=== PATIENT | female | born 1990 | race American Indian/Alaskan Native ===

== ENCOUNTER 2016-05-07 18:54 | Emergency (ER) | payer SELFPAY ==
[2016-05-07] MEDS ORDERED: MOTRIN PO ONE (22:01)
[2016-05-07] MEDS ORDERED: TRIMOX PO ONE (22:01)
--- NOTE | 2016-05-07 22:01 | Emergency Department Report ---
ED ENT HPI - General Chief complaint: Dental/Oral Stated complaint: TOOTH ACHE/EAR INFECTION Time Seen by Provider: 05/07/16 21:47 Source: patient Mode of arrival: Ambulatory Limitations: No Limitations - History of Present Illness Initial comments: PT c/o hole in R upper molar with intermittent pain. PT states the pain is worse if it is cold or if wind gets in her mouth. PT states her pain worsened last night. PT states she thinks her ear is infected. PT states she has intermittent ear pain. PT states she did not take anything for the pain because she did not know what was wrong. MD complaint: tooth pain, ear pain -: Gradual Location: R ear, tooth # (1) 1 - pain Severity: severe Severity scale (0 -10): 10 Quality: aching Consistency: constant Improves with: none Worsens with: other (cold air, wind ) Associated Symptoms: toothache. denies: gum swelling, discharge from ear - Related Data Home Medications Medication Instructions Recorded Confirmed Last Taken Pnv with Ca,No.72/Iron/FA 1 tab PO DAILY 10/03/14 10/28/15 08/10/15 09:00 [ Plus Tablet] 1 Ferrous Sulfate [Feosol] 325 mg PO QDAY 08/10/15 10/28/15 08/10/15 09:00 1 Previous Rx's Medication Instructions Recorded Last Taken Type Amoxicillin 500 mg PO BID #20 capsule 05/07/16 Unknown Rx Ibuprofen [Motrin] 600 mg PO Q8H PRN #15 tablet 05/07/16 Unknown Rx traMADol [Ultram] 50 mg PO Q6HR PRN #12 tablet 05/07/16 Unknown Rx Allergies Allergy/AdvReac Type Severity Reaction Status Date / Time No Known Allergies Allergy Verified 08/10/15 11:38 ED Dental HPI - General Chief complaint: Dental/Oral Stated complaint: TOOTH ACHE/EAR INFECTION Time Seen by Provider: 05/07/16 21:47 Source: patient Mode of arrival: Ambulatory Limitations: No Limitations - Related Data Home Medications Medication Instructions Recorded Confirmed Last Taken Pnv with Ca,No.72/Iron/FA 1 tab PO DAILY 10/03/14 10/28/15 08/10/15 09:00 [ Plus Tablet] 1 Ferrous Sulfate [Feosol] 325 mg PO QDAY 08/10/15 10/28/15 08/10/15 09:00 1 Previous Rx's Medication Instructions Recorded Last Taken Type Amoxicillin 500 mg PO BID #20 capsule 05/07/16 Unknown Rx Ibuprofen [Motrin] 600 mg PO Q8H PRN #15 tablet 05/07/16 Unknown Rx traMADol [Ultram] 50 mg PO Q6HR PRN #12 tablet 05/07/16 Unknown Rx Allergies Allergy/AdvReac Type Severity Reaction Status Date / Time No Known Allergies Allergy Verified 08/10/15 11:38 ED Review of Systems ROS: Stated complaint: TOOTH ACHE/EAR INFECTION Other details as noted in HPI Comment: All other systems reviewed and negative Constitutional: denies: fever ENT: as per HPI Genitourinary: other ( control implant ). denies: abnormal menses ED Past Medical Hx - Past Medical History Hx Hypertension: No Hx Heart Attack/AMI: No Hx Congestive Heart Failure: No Hx Diabetes: No Hx Deep Vein Thrombosis: No Hx Liver Disease: No Hx Renal Disease: No Hx Sickle Cell Disease: No (SICKLE CELL TRAIT) Hx Seizures: No Hx Asthma: No Hx COPD: No Hx HIV: No - Social History Smoking Status: Never Smoker Substance Use Type: None - Medications Home Medications: Home Medications Medication Instructions Recorded Confirmed Last Taken Type Pnv with Ca,No.72/Iron/FA 1 tab PO DAILY 10/03/14 10/28/15 08/10/15 09:00 History [ Plus Tablet] 1 Ferrous Sulfate [Feosol] 325 mg PO QDAY 08/10/15 10/28/15 08/10/15 09:00 History 1 Amoxicillin 500 mg PO BID #20 capsule 05/07/16 Unknown Rx Ibuprofen [Motrin] 600 mg PO Q8H PRN #15 tablet 05/07/16 Unknown Rx traMADol [Ultram] 50 mg PO Q6HR PRN #12 tablet 05/07/16 Unknown Rx ED Physical Exam - General Limitations: No Limitations General appearance: alert, in no apparent distress - Head Head exam: Present: atraumatic, normocephalic - Eye Eye exam: Present: normal appearance, PERRL. Absent: conjunctival injection - ENT ENT exam: Present: normal orophraynx, mucous membranes moist, normal external ear exam, other (R TM WNL ) - Expanded ENT Exam Expanded Ear exam: Present: normal external inspection Mouth exam: Absent: drooling, trismus Teeth exam: Present: dental caries (dental decay noted to tooth 1 ), dental tenderness # (1). Absent: gingival enlargement - Neck Neck exam: Present: normal inspection. Absent: tenderness, lymphadenopathy - Respiratory Respiratory exam: Absent: respiratory distress, wheezes - Extremities Exam Extremities exam: Present: normal inspection, full ROM - Back Exam Back exam: Present: normal inspection, full ROM - Neurological Exam Neurological exam: Present: alert, oriented X3 - Psychiatric Psychiatric exam: Present: normal affect, normal mood - Skin Skin exam: Present: warm, dry ED Course Vital Signs 05/07/16 19:56 Temperature 98.1 F Pulse Rate 66 Respiratory 18 Rate Blood Pressure 113/66 O2 Sat by Pulse 97 Oximetry - Reevaluation(s) Reevaluation #1: 05/07/16 22:14 pt aware mild dental decay seen on exam but no abscess seen. PT aware she will need to follow up with Dentist. PT has no questions at this time. - Pulse Oximetry Interpretation Digit-Finger Initial Pulse Oximetry Readin Actions Taken: none ED Medical Decision Making - Differential Diagnosis toothache, om, oe Critical Care Time: No Critical care attestation.: If time is entered above; I have spent that time in minutes in the direct care of this critically ill patient, excluding procedure time. ED Disposition Clinical Impression: Otalgia, right ear, Toothache Disposition: DISCHARGED TO HOME OR SELFCARE Is pt being admited?: No Does the pt Need Aspirin: No Condition: Stable Instructions: Dental Caries (ED), Toothache (ED), Earache (ED) Additional Instructions: no driving or ETOH after taking Ultram Follow up with Dentist early next week Finish all antibiotics Referrals: PRIMARY CARE,MD [Primary Care Provider] - 3-5 Days Forms: Work/School Release Form(ED) Time of Disposition: 22:16
[2016-05-07 22:30] VITALS: BP 108/73
== END 2016-05-07 22:31 | disposition home or self-care (01) ==
LOC: ED 18:54
DX: H92.01 Otalgia, right ear (principal); K08.89 Other specified disorders of teeth and supporting structures
CPT/HCPCS: 99282